=== PATIENT | male | born 1995 | race Caucasian/White ===

== ENCOUNTER 2016-09-11 01:47 | Emergency (ER) | payer OTHER ==
--- NOTE | ~2016-09-11 | ER ---
PATIENT'S NAME: JAYLEN KYLE [facility] AGE: 21 Y [address] ROOM: [place], [place] [address] LOCATION: [facility] ADMIT DATE: 09/11/2016 ER/Outpatient Report DISCHARGE DATE: 09/11/2016 FAMILY PHYSICIAN: PHYSICIAN, NO ATTENDING PHYSICIAN: Gallito Damon Time of Arrival: 0149 hours. Time of Evaluation: 0149 hours. CHIEF COMPLAINT: Chest pain. HISTORY OF PRESENT ILLNESS: The patient is a 21-year-old male, who presents to the emergency department today with a chief complaint of chest pain. He reports this started at 2230 hours. He denies any nausea or vomiting. No weakness, no diaphoresis. He reports shortness of breath as well. It is on the left side, it goes into his left arm. It is a sharp-type pain. It is currently 5/10 in severity. PAST MEDICAL HISTORY: None. PAST SURGICAL HISTORY: Pins in his arm and tonsils. SOCIAL HISTORY: The patient denies any tobacco, alcohol, or illicit drug use. ALLERGIES: NO KNOWN DRUG ALLERGIES. MEDICATIONS: None. REVIEW OF SYSTEMS: All systems are reviewed by myself and negative with the exception of those discussed in the HPI and past medical history. PHYSICAL EXAMINATION: VITAL SIGNS: Weight 159.8 kg, blood pressure 173/82, pulse 82, respiratory rate 16, temperature 98.2, oxygen saturation 98% on room air. GENERAL: The patient is a 21-year-old male, appears stated age, obese, in no acute distress. HEENT: Normocephalic, atraumatic. Pupils are equal, round, and reactive to light and accommodation. Extraocular motions are intact. Nares are patent PATIENT'S NAME: JAYLEN KYLE [facility] AGE: 21 Y [address] ROOM: [place], [place] [address] LOCATION: [facility] ADMIT DATE: 09/11/2016 ER/Outpatient Report DISCHARGE DATE: 09/11/2016 FAMILY PHYSICIAN: PHYSICIAN, NO ATTENDING PHYSICIAN: Gallito Damon bilaterally. TMs are clear. Oropharynx is clear. NECK: Supple. There is no nuchal rigidity. CARDIOVASCULAR: Regular rate and rhythm. No murmurs, rubs, or gallops. LUNGS: Clear to auscultation bilaterally. No wheezes, rales, or rhonchi. ABDOMEN: Soft, nontender, and nondistended. No rebound, rigidity, or guarding. MUSCULOSKELETAL: The patient moves all 4 extremities. SKIN: Warm and dry. There are no rashes or lesions noted. LABORATORY DATA AND X-RAYS: Obtained. Two views of chest x-ray is obtained, interpreted by myself, shows no acute cardiopulmonary process. EKG is obtained, shows sinus rhythm with a rate of 83, normal axis, normal interval. No ST elevation, ST depression, T- wave inversions are noted. IMPRESSION: 1. Chest pain of unclear etiology. 2. Initial visit. EMERGENCY DEPARTMENT COURSE: The patient was brought back to the examination room. Seen and evaluated by myself. EKG and x-rays are obtained as described above. I have discussed the results with the patient. I would like him to follow up with primary care doctor in 2-3 days for re-evaluation. He does report he has an appointment with Dr. Rai on Saturday. I have requested that he gets his blood pressure rechecked. He does have a normal chest x-ray and normal EKG. We have written a prescription for albuterol for his shortness of breath. I have discussed [id number] instructions including worsening symptoms or any other concerns to return to the emergency department as soon as possible. The patient is agreeable without further questions. DISPOSITION: The patient discharged to home in good condition. DO MORENITA NIETO/chelsea /[id number] d: 09/11/16 0420 t: 09/12/16 1332, OUTPATIENT REPORT
== END 2016-09-11 02:43 | disposition disaster alternative care site (69) ==
LOC: GMED 01:47
DX: R07.9 Chest pain, unspecified (principal); Z90.89 Acquired absence of other organs